=== PATIENT | male | born 1965 | race Caucasian/White ===

== ENCOUNTER 2018-05-23 17:23 | Inpatient (IN) | payer OTHER ==
[~2018-05-23 17:23] MED LIST: chlordiazePOXIDE HCL 25 MG CAPSULE PO SCH
[2018-05-23 19:41] VITALS: BMI 18.6
[2018-05-23] MEDS ORDERED: MELATONIN 5 MG TABLETS PO PRN (22:00)
--- NOTE | 2018-05-23 23:23 | HP ---
CIWA Score - CIWA Score Nausea/Vomitin-No Nausea/No Vomiting Muscle Tremors: 3 Anxiety: 3 Agitation: 3 Paroxysmal Sweats: 3 Orientation: 0-Oriented Tacttile Disturbances: 2-Mild Itch/Numbness/Burn (hands and feet) Auditory Disturbances: 0-None Visual Disturbances: 2-Mild Sensitivity Headache: 2-Mild CIWA-Ar Total Score: 18 Admission ROS S - HPI Chief Complaint: " I want to do things right, I want to go to rehab after this" alcohol withdrawal symptoms Allergies/Adverse Reactions: Allergies Allergy/AdvReac Type Severity Reaction Status Date / Time No Known Allergies Allergy Verified 05/23/18 22:42 History of Present Illness: 52 yo male with hx of nicotine, crack /cocaine, and alcohol dependence is here seeking detox for the first times. Patient reports he was sent by his contact officer Phylicia Steve to attend detox Denies any prior treatment. PMHX: Asthma, TBI, seizure d/o last seizure three days ago, HDL, depression, anxiety and bipolar. Denies suicidal / homicidal ideation. Reports admission to [facility] of suicide attempt attempt one month ago. Longest period of sobriety 7.5 years while in alf. Exam Limitations: No Limitations - Ebola screening Have you traveled outside of the country in the last 21 days: No Have you had contact with anyone from an Ebola affected area: No Have you been sick,other than usual withdrawal symptoms: No Do you have a fever: No - Review of Systems Constitutional: Loss of Appetite, Changes in sleep, Unintentional Wgt. Loss (20 lbs) EENT: reports: No Symptoms Reported Respiratory: reports: No Symptoms reported Cardiac: reports: No Symptoms Reported GI: reports: Constipated (last BM this AM) : reports: No Symptoms Reported Musculoskeletal: reports: Joint Pain (hx OA b/l hands and kness) Integumentary: reports: No Symptoms Reported Neuro: reports: See HPI Endocrine: reports: No Symptoms Reported Hematology: reports: No Symptoms Reported Psychiatric: reports: Orientated x3, Anxious Other Systems: Reviewed and Negative Patient History - Patient Medical History Hx Anemia: No Hx Asthma: Yes Hx Chronic Obstructive Pulmonary Disease (COPD): No Hx Cancer: No Hx Cardiac Disorders: No Hx Congestive Heart Failure: No Hx Hypertension: No Hx Hypercholesterolemia: Yes Hx Pacemaker: No HX Cerebrovascular Accident: No Hx Seizures: Yes (last seizure three days ago ) Hx Dementia: No Hx Diabetes: No Hx Gastrointestinal Disorders: No Hx Liver Disease: No Hx Genitourinary Disorders: No Hx Sexually Transmitted Disorders: No Hx Renal Disease (ESRD): No Hx Thyroid Disease: No Hx Human Immunodeficiency Virus (HIV): No Hx Hepatitis C: Yes (treated ) Hx Depression: Yes Hx Suicide Attempt: Yes (One month ago ) Hx Bipolar Disorder: Yes Hx Schizophrenia: No - Patient Surgical History Past Surgical History: Yes Hx Neurologic Surgery: No Hx Cataract Extraction: No Hx Cardiac Surgery: No Hx Lung Surgery: No Hx Breast Surgery: No Hx Breast Biopsy: No Hx Abdominal Surgery: No Hx Appendectomy: No Hx Cholecystectomy: No Hx Genitourinary Surgery: No Hx Section: No Hx Orthopedic Surgery: Yes (orthoscopic surgery right knee ) Other Surgical History: head inury removal of device 1994 Anesthesia Reaction: No - PPD History Previous Implant?: Yes Documented Results: Negative w/o proof Implanted On Prior [facility] Admission?: No PPD to be Administered?: Yes - Smoking Cessation Smoking history: Current every day smoker Have you smoked in the past 12 months: Yes Aproximately how many cigarettes per day: 5 Hx Chewing Tobacco Use: No Initiated information on smoking cessation: Yes 'Breaking Loose' booklet given: 05/23/18 - Substance & Tx. History Hx Alcohol Use: Yes Hx Substance Use: Yes Substance Use Type: Alcohol, Cocaine Hx Substance Use Treatment: No - Substances Abused Alcohol Route: Oral Frequency: Daily Amount used: BEER- 1 CASE Age of first use: 12 Date of Last Use: 05/23/18 Crack Route: Smoking Frequency: Daily Amount used: $200 WORTH Age of first use: 17 Date of Last Use: 05/22/18 Family Disease History - Family Disease History Family Disease History: Diabetes: Father ( ), CA: Mother (alive, bone CA ) Admission Physical Exam BHS - Vital Signs Vital Signs: Vital Signs - 24 hr 05/23/18 19:39 Temperature 97.9 F Pulse Rate 92 H Respiratory 20 Rate Blood Pressure 129/84 - Physical General Appearance: Yes: Appropriately Dressed, Moderate Distress, Sweating, Anxious HEENTM: Yes: Within Normal Limits Respiratory: Yes: Chest Non-Tender, Lungs Clear, Normal Breath Sounds, No Respiratory Distress, No Accessory Muscle Use Neck: Yes: Within Normal Limits Breast: Yes: Breast Exam Deferred Cardiology: Yes: Regular Rhythm, Regular Rate Abdominal: Yes: Normal Bowel Sounds, Non Tender, Flat, Soft Genitourinary: Yes: Within Normal Limits Back: Yes: Normal Inspection Musculoskeletal: Yes: full range of Motion, Gait Steady, Pelvis Stable Extremities: Yes: Normal Capillary Refill, Normal Inspection, Normal Range of Motion Neurological: Yes: butcher helper II-XII NML intact, Fully Oriented, Alert, Motor Strength 5/5, Depressed Affect Integumentary: Yes: Normal Color, Warm, Diaphoresis Lymphatic: Yes: Within Normal Limits - Diagnostic (1) Withdrawal symptoms, alcohol Current Visit: Yes Status: Acute Qualifiers: Complication of substance-induced condition: uncomplicated Qualified Code(s ): F10.230 - Alcohol dependence with withdrawal, uncomplicated (2) Asthma Current Visit: Yes Status: Chronic Qualifiers: Asthma severity: mild Asthma persistence: unspecified Asthma complication type: unspecified Qualified Code(s): J45.998 - Other asthma (3) Seizure disorder Current Visit: Yes Status: Chronic Comment: on Depakote (4) History of traumatic brain injury Current Visit: Yes Status: Chronic (5) Psychiatric disorder Current Visit: Yes Status: Suspected Cleared for Admission [facility] - Detox or Rehab [facility] Level of Care: Medically Managed Detox Regimen/Protocol: Librium [facility] Breath Alcohol Content Breath Alcohol Content: 0 Urine Drug Screen - Results Drug Screen Negative: No Urine Drug Screen Results: RALPH-Cocaine
[2018-05-23] MEDS ORDERED: MAGNESIUM CITRATE 300 ML BOTTLE PO PRN (23:28)
[2018-05-23] MEDS ORDERED: chlordiazePOXIDE HCL 25 MG CAPSULE PO PRN (23:28)
[2018-05-23] MEDS ORDERED: MAGNESIUM HYDROX 2400MG/30ML ORAL SUSPENSION 30 ML CUP PO PRN (23:28)
[2018-05-23] MEDS ORDERED: ACETAMINOPHEN 325 MG TABLET (FP) PO PRN (23:28)
[2018-05-23] MEDS ORDERED: P-EPHED 60MG/TRIPROLIDI 2.5MG TABLET PO PRN (23:28)
[2018-05-23] MEDS ORDERED: LOPERAMIDE HCL 2 MG CAPSULE PO PRN (23:28)
[2018-05-23] MEDS ORDERED: IBUPROFEN 400 MG TABLET (FP) PO PRN (23:28)
[2018-05-23] MEDS ORDERED: MENTHOL/PHENOL 1 EACH UD MM PRN (23:28)
[2018-05-23] MEDS ORDERED: guaiFENesin/D-METHORPHAN HB 10 ML UNIT-DOSE CUPS PO PRN (23:28)
[2018-05-23] MEDS ORDERED: chlordiazePOXIDE HCL 25 MG CAPSULE PO ONE (23:28)
[2018-05-23] MEDS ORDERED: NICOTINE POLACRILEX 2 MG GUM BC PRN (23:28)
[2018-05-24] MEDS: chlordiazePOXIDE HCL 25 MG CAPSULE PO SCH ×4 (05:33→22:25)
--- NOTE | 2018-05-24 09:13 | CONSULT ---
[facility] Psychiatric Consult - Data Date of interview: 05/24/18 Admission source: [facility] Identifying data: This is a 52 years old male, divorsed, unemployed, living with roommate, on Welfare support, with history of psychiatric hospitalizations , history of Bipolar Disorder, with history of nicotine, crack /cocaine, and alcohol dependence is here seeking detox reporting withdrawal symptoms.Denies any prior Detox treatment. Substance Abuse History: - Smoking Cessation. Smoking history: Current every day smoker. Have you smoked in the past 12 months: Yes. Aproximately how many cigarettes per day: 5. Hx Chewing Tobacco Use: No. Initiated information on smoking cessation: Yes. 'Breaking Loose' booklet given: 05/23/18. - Substance & Tx. History. Hx Alcohol Use: Yes. Hx Substance Use: Yes. Substance Use Type : Alcohol, Cocaine. Hx Substance Use Treatment: No. - Substances Abused. Alcohol. Route: Oral. Frequency: Daily. Amount used: BEER- 1 CASE. Age of first use: 12. Date of Last Use: 05/23/18. Crack. Route: Smoking. Frequency: Daily. Amount used: $200 WORTH. Age of first use: 17. Date of Last Use: 05/22/18 Medical History: TBI history, Seizure history Psychiatric History: Patient reports history of Bipolar Disorder with most recent psychiatric admission on [address] [facility] after suicidal attempt-" I dont like to talk about it, I have been under Alcohol intoxication" . Reports taking prior to admission: Depakote 500mg po bid. Prozac 20mg poqd. Abilify 15mg poqd. Buspar 15mg po qhs. Patient motivated to restart his medications. Denies suicidal and homicidal ideations at this time. Physical/Sexual Abuse/Trauma History: Denies Additional Comment: Depakote 500mg po bid. Prozac 20mg poqd. Abilify 15mg poqd. Buspar 15mg po qhs Mental Status Exam - Mental Status Exam Alert and Oriented to: Place, Person Cognitive Function: Fair Patient Appearance: Unkempt Mood: Sad Affect: Flat Patient Behavior: Cooperative Speech Pattern: Appropriate Voice Loudness: Mildly Soft/Quiet Thought Process: Goal Oriented Thought Disorder: Being Controlled Hallucinations: Denies Suicidal Ideation: Denies Homicidal Ideation: Denies Insight/Judgement: Fair Sleep: Difficulty falling asleep Appetite: Fair Muscle strength/Tone: Normal Gait/Station: Normal Additional Comments: Depakote 500mg po bid. Prozac 20mg poqd. Abilify 15mg poqd. Buspar 15mg po qhs Psychiatric Findings - Problem List ([place] 1, 2,3) (1) Cocaine dependence Current Visit: Yes Status: Acute (2) Alcohol dependence Current Visit: Yes Status: Acute (3) Bipolar disorder Current Visit: Yes Status: Acute (4) Withdrawal symptoms, alcohol Current Visit: Yes Status: Acute Qualifiers: Complication of substance-induced condition: uncomplicated Qualified Code(s ): F10.230 - Alcohol dependence with withdrawal, uncomplicated (5) Asthma Current Visit: Yes Status: Chronic Qualifiers: Asthma severity: mild Asthma persistence: unspecified Asthma complication type: unspecified Qualified Code(s): J45.998 - Other asthma (6) History of traumatic brain injury Current Visit: Yes Status: Chronic (7) Seizure disorder Current Visit: Yes Status: Chronic Comment: on Depakote - Initial Treatment Plan Initial Treatment Plan: Depakote 500mg po bid. Prozac 20mg poqd. Abilify 15mg poqd. Buspar 15mg po qhs. Blood Depakote level
[2018-05-24 10:24] LABS: HEMATOCRIT 40.5 % (35.4-49); HEMOGLOBIN 13.3 GM/dL (11.7-16.9); MCH 30.9 pg (25.7-33.7); MCHC 32.8 g/dl (32.0-35.9); MEAN CELL VOLUME 94.1 fl (80-96); MEAN PLT VOLUME 9.8 fl (7.5-11.1); PLATELET COUNT 187 K/MM3 (134-434); RBC 4.31 M/mm3 (4.00-5.60); WHITE BLOOD COUNT 6.1 K/mm3 (4.0-10.0)
[2018-05-24] MEDS: ARIPiprazole 15 MG TABLET PO SCH (10:36)
[2018-05-24] MEDS: PRENATAL VITAMINS W/ FOLIC ACID TABLET (FP) PO SCH (10:36)
[2018-05-24] MEDS: DIVALPROEX SODIUM 500 MG TABLET E.C. PO SCH ×2 (10:36→22:25)
[2018-05-24] MEDS: NICOTINE 14 MG/24 HOURS TOPICAL PATCH TD SCH (10:36)
[2018-05-24] MEDS: FLUoxetine HCL 20 MG CAPSULE (FP) PO SCH (10:36)
--- NOTE | 2018-05-24 10:44 | PN ---
S CIWA - CIWA Score Nausea/Vomitin Muscle Tremors: 3 Anxiety: 2 Agitation: 2 Paroxysmal Sweats: 3 Tacttile Disturbances: 2-Mild Itch/Numbness/Burn Auditory Disturbances: 0-None Visual Disturbances: 0-None Headache: 0-None Present S Progress Note (SOAP) Subjective: interrupted sleep, sweats,shakes , wants to see kimberly for medication adjustment. Objective: 05/24/18 10:42 Vital Signs Temperature 97.7 F 05/24/18 06:09 Pulse Rate 85 05/24/18 06:09 Respiratory Rate 20 05/24/18 06:09 Blood Pressure 118/64 05/24/18 06:09 O2 Sat by Pulse Oximetry (%) pending labs pt aox3 in nad ambulating Assessment: 05/24/18 10:43 withdrawal sx's Plan: cont detox increase fluids f/up pending labs pysch f/up
[2018-05-24 10:45] LABS: CHLORIDE 108 mmol/L (98-107); POTASSIUM 4.4 mmol/L (3.5-5.1); SODIUM 143 mmol/L (136-145)
[2018-05-24 10:55] LABS: ALBUMIN 2.9 g/dl (3.4-5.0); ALK PHOS 57 U/L (45-117); ANION GAP 5 MMOL/L (8-16); BILIRUBIN,TOTAL 0.2 mg/dL (0.2-1.0); BLOOD UREA NITROGEN 24 mg/dL (7-18); CALCIUM 8.7 mg/dL (8.5-10.1); CO2 30 mmol/L (21-32); GLUCOSE,RANDOM 92 mg/dL (74-106); SGOT/AST 13 U/L (15-37); SGPT/ALT 22 U/L (12-78); TOT PROT 5.7 g/dl (6.4-8.2)
[2018-05-24 11:00] LABS: URINE APPEARANCE CLEAR; URINE BILIRUBIN NEGATIVE (<2.0 mg/dL); URINE COLOR LTYELLOW; URINE GLUCOSE (UA) NEGATIVE (NEGATIVE); URINE KETONE NEGATIVE (NEGATIVE); URINE LEUK ESTERASE NEGATIVE (NEGATIVE); URINE NITRITE NEGATIVE (NEGATIVE); URINE PROTEIN NEGATIVE (NEGATIVE); URINE UROBILINOGEN NEGATIVE mg/dL (0.2-1.0)
[2018-05-24] MEDS: MAG HYDROX/AL HYDROX/SIMETH 30 ML UNIT-DOSE CUP PO PRN (22:25)
[2018-05-24] MEDS: THIAMINE HCL 100 MG TABLET (FP) PO SCH (22:25)
[2018-05-25] MEDS: chlordiazePOXIDE 5 MG CAPSULE PO SCH ×4 (05:18→22:27)
[2018-05-25] MEDS: NICOTINE 14 MG/24 HOURS TOPICAL PATCH TD SCH (10:13)
[2018-05-25] MEDS: FLUoxetine HCL 20 MG CAPSULE (FP) PO SCH (10:13)
[2018-05-25] MEDS: ARIPiprazole 15 MG TABLET PO SCH (10:13)
[2018-05-25] MEDS: DIVALPROEX SODIUM 500 MG TABLET E.C. PO SCH ×2 (10:13→22:27)
[2018-05-25] MEDS: PRENATAL VITAMINS W/ FOLIC ACID TABLET (FP) PO SCH (10:13)
--- NOTE | 2018-05-25 18:09 | PN ---
S CIWA - CIWA Score Nausea/Vomitin-No Nausea/No Vomiting Muscle Tremors: 4-Moderate,w/Arms Extend Anxiety: 1-Mildly Anxious Agitation: 0-Normal Activity Paroxysmal Sweats: No Perspiration Orientation: 0-Oriented Tacttile Disturbances: 0-None Auditory Disturbances: 0-None Visual Disturbances: 0-None Headache: 0-None Present CIWA-Ar Total Score: 5 BHS Progress Note (SOAP) Subjective: Patient states feeling a little shaky, but much better. Objective: Alert and oriented x 3. Mild tremors of extremities. Abd soft, NT, BS+. Vital Signs 05/25/18 05/25/18 13:26 17:19 Temperature 97.7 F 97.9 F Pulse Rate 86 82 Respiratory 18 22 Rate Blood Pressure 110/58 107/57 Laboratory Last Values WBC 6.1 K/mm3 (4.0-10.0) 05/24/18 07:30 RBC 4.31 M/mm3 (4.00-5.60) 05/24/18 07:30 Hgb 13.3 GM/dL (11.7-16.9) 05/24/18 07:30 Hct 40.5 % (35.4-49) 05/24/18 07:30 MCV 94.1 fl (80-96) 05/24/18 07:30 MCH 30.9 pg (25.7-33.7) 05/24/18 07:30 MCHC 32.8 g/dl (32.0-35.9) 05/24/18 07:30 RDW 14.0 % (11.9-15.9) 05/24/18 07:30 Plt Count 187 K/MM3 (134-434) 05/24/18 07:30 MPV 9.8 fl (7.5-11.1) 05/24/18 07:30 Sodium 143 mmol/L (136-145) 05/24/18 07:30 Potassium 4.4 mmol/L (3.5-5.1) 05/24/18 07:30 Chloride 108 mmol/L (98-107) H 05/24/18 07:30 Carbon Dioxide 30 mmol/L (21-32) 05/24/18 07:30 Anion Gap 5 MMOL/L (8-16) L 05/24/18 07:30 BUN 24 mg/dL (7-18) H 05/24/18 07:30 Creatinine 1.0 mg/dL (0.7-1.3) 05/24/18 07:30 Creat Clearance w eGFR > 60 (>60) 05/24/18 07:30 Random Glucose 92 mg/dL (74-106) 05/24/18 07:30 Calcium 8.7 mg/dL (8.5-10.1) 05/24/18 07:30 Total Bilirubin 0.2 mg/dL (0.2-1.0) 05/24/18 07:30 AST 13 U/L (15-37) L 05/24/18 07:30 ALT 22 U/L (12-78) 05/24/18 07:30 Alkaline Phosphatase 57 U/L (45-117) 05/24/18 07:30 Total Protein 5.7 g/dl (6.4-8.2) L 05/24/18 07:30 Albumin 2.9 g/dl (3.4-5.0) L 05/24/18 07:30 Urine Color Ltyellow 05/24/18 09:05 Urine Appearance Clear 05/24/18 09:05 Urine pH 6.0 (5.0-8.0) 05/24/18 09:05 Ur Specific [place] 1.026 (1.001-1.035) 05/24/18 09:05 Urine Protein Negative (NEGATIVE) 05/24/18 09:05 Urine Glucose (UA) Negative (NEGATIVE) 05/24/18 09:05 Urine Ketones Negative (NEGATIVE) 05/24/18 09:05 Urine Blood Negative (NEGATIVE) 05/24/18 09:05 Urine Nitrite Negative (NEGATIVE) 05/24/18 09:05 Urine Bilirubin Negative (<2.0 mg/dL) 05/24/18 09:05 Urine Urobilinogen Negative mg/dL (0.2-1.0) 05/24/18 09:05 Ur Leukocyte Esterase Negative (NEGATIVE) 05/24/18 09:05 Valproic Acid 35.6 ug/ml (50-100) L 05/24/18 07:30 RPR Titer Nonreactive (NONREACTIVE) 05/24/18 07:30 HIV 1&2 Antibody Screen Negative 05/24/18 07:30 HIV P24 Antigen Negative 05/24/18 07:30 Labs reviewed. Assessment: Alcohol withdrawal symptoms. Plan: Continue detox. Encourage water intake.
[2018-05-25] MEDS: THIAMINE HCL 100 MG TABLET (FP) PO SCH (22:27)
[2018-05-25] MEDS: MAG HYDROX/AL HYDROX/SIMETH 30 ML UNIT-DOSE CUP PO PRN (22:28)
[2018-05-26] MEDS: chlordiazePOXIDE HCL 10 MG CAPSULE PO SCH ×3 (05:55→17:23)
[2018-05-26] MEDS: MAG HYDROX/AL HYDROX/SIMETH 30 ML UNIT-DOSE CUP PO PRN (05:56)
[2018-05-26] MEDS: ARIPiprazole 15 MG TABLET PO SCH (10:27)
[2018-05-26] MEDS: NICOTINE 14 MG/24 HOURS TOPICAL PATCH TD SCH (10:27)
[2018-05-26] MEDS: DIVALPROEX SODIUM 500 MG TABLET E.C. PO SCH (10:27)
[2018-05-26] MEDS: FLUoxetine HCL 20 MG CAPSULE (FP) PO SCH (10:27)
[2018-05-26] MEDS: PRENATAL VITAMINS W/ FOLIC ACID TABLET (FP) PO SCH (10:27)
--- NOTE | 2018-05-26 14:48 | DS ---
[facility] Detox Discharge Summary Admission Date: 05/23/18 Discharge Date: 05/26/18 - History Present History: Alcohol Dependence, Cocaine Dependence Additional Comments: Patient admitted w/ alcohol withdrawal. Laboratory Tests 05/24/18 05/24/18 05/24/18 07:30 07:30 07:30 WBC 6.1 RBC 4.31 Hgb 13.3 Hct 40.5 MCV 94.1 MCH 30.9 MCHC 32.8 RDW 14.0 Plt Count 187 MPV 9.8 Sodium 143 Potassium 4.4 Chloride 108 H Carbon Dioxide 30 Anion Gap 5 L BUN 24 H Creatinine 1.0 Creat Clearance w eGFR > 60 Random Glucose 92 Calcium 8.7 Total Bilirubin 0.2 AST 13 L ALT 22 Alkaline Phosphatase 57 Total Protein 5.7 L Albumin 2.9 L Urine Color Urine Appearance Urine pH Ur Specific [place] Urine Protein Urine Glucose (UA) Urine Ketones Urine Blood Urine Nitrite Urine Bilirubin Urine Urobilinogen Ur Leukocyte Esterase Valproic Acid RPR Titer HIV 1&2 Antibody Screen Negative HIV P24 Antigen Negative 05/24/18 05/24/18 05/24/18 07:30 07:30 09:05 WBC RBC Hgb Hct MCV MCH MCHC RDW Plt Count MPV Sodium Potassium Chloride Carbon Dioxide Anion Gap BUN Creatinine Creat Clearance w eGFR Random Glucose Calcium Total Bilirubin AST ALT Alkaline Phosphatase Total Protein Albumin Urine Color Ltyellow Urine Appearance Clear Urine pH 6.0 Ur Specific [place] 1.026 Urine Protein Negative Urine Glucose (UA) Negative Urine Ketones Negative Urine Blood Negative Urine Nitrite Negative Urine Bilirubin Negative Urine Urobilinogen Negative Ur Leukocyte Esterase Negative Valproic Acid 35.6 L RPR Titer Nonreactive HIV 1&2 Antibody Screen HIV P24 Antigen Labs reviewed. - Physical Exam Results Vital Signs: Vital Signs Temperature 96.6 F L 05/26/18 13:13 Pulse Rate 83 05/26/18 13:13 Respiratory Rate 18 05/26/18 13:13 Blood Pressure 131/73 05/26/18 13:13 O2 Sat by Pulse Oximetry (%) Pertinent Admission Physical Exam Findings: Patient admitted with alcohol withdrawal symptoms and a hx of crack/cocaine use. Patient w/ hx of seizures on Depakote. - Treatment Hospital Course: Detox Protocol Followed, Detoxed Safely, Responded well, Discharged Condition Good (No withdrawal symptoms. A & O x3. Gait steady.), Rehab Referral Accepted Patient has Accepted a Rehab Referral to: [facility] - Medication Discharge Medications: Ambulatory Orders Fluoxetine HCl [Prozac -] 20 mg PO DAILY 05/23/18 Aripiprazole [Abilify -] 15 mg PO DAILY #30 tablet 05/24/18 Buspirone HCl [Buspar -] 15 mg PO HS #30 tablet 05/24/18 Divalproex [Depakote -] 500 mg PO BID #60 tablet.ec 05/24/18 Fluoxetine HCl [Prozac -] 20 mg PO DAILY #30 capsule 05/24/18 - Diagnosis (1) Withdrawal symptoms, alcohol Status: Resolved Qualifiers: Complication of substance-induced condition: uncomplicated Qualified Code(s ): F10.230 - Alcohol dependence with withdrawal, uncomplicated - AMA Did Patient Leave Against Medical Advice: No
[2018-05-26 17:21] VITALS: BP 131/65; PULSE 96; TEMP 97.7
== END 2018-05-26 17:51 | disposition other institution (70) | DRG 774 ==
LOC: YASAS 17:23 → Y6N 23:11
PROC: HZ2ZZZZ Detoxification Services for Substance Abuse Treatment (ICD-10-PCS; principal; 2018-05-23)
DX: F10.230 Alcohol dependence with withdrawal, uncomplicated (principal); F14.20 Cocaine dependence, uncomplicated; F17.210 Nicotine dependence, cigarettes, uncomplicated; F31.9 Bipolar disorder, unspecified; F99 Mental disorder, not otherwise specified; G40.909 Epilepsy, unspecified, not intractable, without status epilepticus; J45.998 Other asthma; M19.042 Primary osteoarthritis, left hand; M19.041 Primary osteoarthritis, right hand; M17.0 Bilateral primary osteoarthritis of knee; Z86.19 Personal history of other infectious and parasitic diseases; Z91.5 Personal history of self-harm; Z87.820 Personal history of traumatic brain injury
CPT/HCPCS: 36415; 80053; 80164; 81003; 85027; 86593; 87389

== ENCOUNTER 2018-05-26 18:16 | Inpatient (IN) | payer OTHER ==
[2018-05-26] MEDS ORDERED: MAGNESIUM HYDROX 2400MG/30ML ORAL SUSPENSION 30 ML CUP PO PRN (20:19)
[2018-05-26] MEDS ORDERED: IBUPROFEN 400 MG TABLET (FP) PO PRN (20:19)
[2018-05-26] MEDS ORDERED: MAGNESIUM CITRATE 300 ML BOTTLE PO PRN (20:19)
[2018-05-26] MEDS ORDERED: guaiFENesin/D-METHORPHAN HB 10 ML UNIT-DOSE CUPS PO PRN (20:19)
[2018-05-26] MEDS ORDERED: hydrOXYzine PAMOATE 50 MG CAPSULE (FP) PO PRN (20:19)
[2018-05-26] MEDS ORDERED: MENTHOL/PHENOL 1 EACH UD MM PRN (20:19)
[2018-05-26] MEDS ORDERED: P-EPHED 60MG/TRIPROLIDI 2.5MG TABLET PO PRN (20:19)
[2018-05-26] MEDS ORDERED: LOPERAMIDE HCL 2 MG CAPSULE PO PRN (20:19)
[2018-05-26] MEDS ORDERED: ACETAMINOPHEN 325 MG TABLET (FP) PO PRN (20:19)
[2018-05-26] MEDS: THIAMINE HCL 100 MG TABLET (FP) PO SCH (21:56)
[2018-05-26] MEDS: MELATONIN 5 MG TABLETS PO PRN (21:56)
[2018-05-26] MEDS: MAG HYDROX/AL HYDROX/SIMETH 30 ML UNIT-DOSE CUP PO PRN (21:56)
--- NOTE | 2018-05-26 22:10 | PN ---
[facility] Progress Note Note: Patient seen and states has no withdrawal symptoms and wants to go to rehab. A & O x3. Gait steady. Vital Signs 05/26/18 20:39 Temperature 97.7 F Pulse Rate 80 Respiratory 18 Rate Blood Pressure 131/65
[2018-05-27] MEDS: DIVALPROEX SODIUM 500 MG TABLET E.C. PO SCH ×2 (09:43→21:13)
[2018-05-27] MEDS: PRENATAL VITAMINS W/ FOLIC ACID TABLET (FP) PO SCH (09:43)
[2018-05-27] MEDS: NICOTINE 14 MG/24 HOURS TOPICAL PATCH TD SCH (09:43)
--- NOTE | 2018-05-27 13:25 | PN ---
[facility] Progress Note Note: Psychiatry Attending's note : Called to enter orders for medications. New admission to . Mr Luis completed detoxification. On .Diagnosed with Bipolar Disorder. Dr Barnard's note (05/24/18) : appreciated. Medications confirmed.Labs are revisited.CBC : WNL. Valproic acid level = 35.6 (sub-therapeutic). Medications are well tolerated.Unremarkable LFTS. Side effects/benefits discussed with the patient. Consents (verbally) to continuity of care. Plan : Depakote 500 mg po bid Buspar 15 mg po hs Aripriprazole 15 mg po daily Prozac 20 mg po daily Reconciled.
[2018-05-27] MEDS: THIAMINE HCL 100 MG TABLET (FP) PO SCH (21:14)
[2018-05-27] MEDS: MELATONIN 5 MG TABLETS PO PRN (21:15)
[2018-05-28] MEDS: FLUoxetine HCL 20 MG CAPSULE (FP) PO SCH (09:39)
[2018-05-28] MEDS: DIVALPROEX SODIUM 500 MG TABLET E.C. PO SCH ×2 (09:39→21:23)
[2018-05-28] MEDS: PRENATAL VITAMINS W/ FOLIC ACID TABLET (FP) PO SCH (09:39)
[2018-05-28] MEDS: ARIPiprazole 15 MG TABLET PO SCH (09:39)
[2018-05-28] MEDS: NICOTINE 14 MG/24 HOURS TOPICAL PATCH TD SCH (09:39)
[2018-05-28] MEDS: MELATONIN 5 MG TABLETS PO PRN (21:24)
[2018-05-28] MEDS: THIAMINE HCL 100 MG TABLET (FP) PO SCH (21:24)
--- NOTE | 2018-05-29 08:05 | HP ---
Psychiatrist Admission - Data Date of interview: 05/29/18 Admission source: 6N Identifying data: This is the first [facility] admission for this 52 years old [place]haric[place]Faro[place] male, unemployed on public assistance, domiciled living in [facility] housing Medical History: Significant for bronchial asthma, dyslipidemia, history of TBI , arthritis fingers ans knees and arthroscopic surgery right knee. Smokes 5 cigarettes daily Psychiatric History: Reports that his first psychiatric contact was in 1993 when he was admitted to a hospital in [place], [place], diagnosed with Bipolar Disorder and started on psychotropic medications. Reports multiple subsequent admissions to hospitals in [place], [facility] and [place]. Most recent admission was a month ago to [facility] for suicidal ideations. He was discharged on Depakote 500 mg po BID, Prozac 60 mg po daily, Buspar 15 mg po HS and Abilify 15 mg po daily. Denies previous suicidal attempt. At present, reports feeling anxious and sleeping poorly Physical/Sexual Abuse/Trauma History: Denies history of emotional, physical or sexual abuse as well as DV relationship. Claims he was in [facility] [employer] for 3 years and his discharge was honorable Additional Comment: Reports history of 4-5 previous arrests including 3 felony convictions. Reports being on parole till December 29, 2018 Vital Signs: Vital Signs - 24 hr 05/29/18 05/29/18 05/29/18 00:30 03:30 06:56 Temperature 97.6 F Pulse Rate 83 Respiratory 20 20 18 Rate Blood Pressure 115/73 Allergies/Adverse Reactions: Allergies Allergy/AdvReac Type Severity Reaction Status Date / Time No Known Allergies Allergy Verified 05/23/18 22:42 Date of last physical exam: 05/23/18 Concur with the findings of this exam: Yes - Substance Abuse/Tx History Hx Alcohol Use: Yes Hx Substance Use: Yes Substance Use Type: Alcohol (Started drinking alcohol at age 12, consumes one can of beer daily. Last drank on 05/23/18), Cocaine (Started smoking crack cocaine at age 17, consumes $200 worth daily. Last smoked on 05/22/18) Hx Substance Use Treatment: Yes (3 inpt detox and one inpt rehab([place], [place])) Mental Status Exam - Mental Status Exam Alert and Oriented to: Time, Place, Person Cognitive Function: Fair Patient Appearance: Well Groomed Mood: Anxious Affect: Appropriate Patient Behavior: Cooperative Speech Pattern: Clear Voice Loudness: Normal Thought Process: Intact, Goal Oriented Thought Disorder: Not Present Hallucinations: Denies Suicidal Ideation: Denies Homicidal Ideation: Denies Insight/Judgement: Fair Sleep: Poorly Appetite: Good Muscle strength/Tone: Normal Gait/Station: Normal Psychiatric Findings - Problem List ([place] 1, 2,3) (1) Alcohol dependence Current Visit: No Status: Acute (2) Cocaine dependence Current Visit: No Status: Acute Qualifiers: Substance use status: in remission Qualified Code(s): F14.21 - Cocaine dependence, in remission (3) Nicotine dependence Current Visit: Yes Status: Chronic (4) Bipolar disorder Current Visit: No Status: Chronic Qualifiers: Most recent bipolar episode type: most recent episode unspecified type (5) Substance induced mood disorder Current Visit: Yes Status: Acute (6) Substance-induced sleep disorder Current Visit: Yes Status: Acute (7) Asthma Current Visit: No Status: Chronic Qualifiers: Asthma severity: mild Asthma persistence: unspecified Asthma complication type: unspecified Qualified Code(s): J45.998 - Other asthma (8) History of traumatic brain injury Current Visit: No Status: Chronic (9) Seizure disorder Current Visit: No Status: Chronic Comment: on Depakote (10) HLD (hyperlipidemia) Current Visit: Yes Status: Chronic - Initial Treatment Plan Initial Treatment Plan: 1) Continue Prozac 60 mg po daily, Abilify 15 mg po daily, Buspar 15 mg po HS and Depakote 500 mg po BID. 2) Monitor progress
[2018-05-29] MEDS: ARIPiprazole 15 MG TABLET PO SCH (10:10)
[2018-05-29] MEDS: DIVALPROEX SODIUM 500 MG TABLET E.C. PO SCH ×2 (10:10→21:36)
[2018-05-29] MEDS: PRENATAL VITAMINS W/ FOLIC ACID TABLET (FP) PO SCH (10:10)
[2018-05-29] MEDS: NICOTINE 14 MG/24 HOURS TOPICAL PATCH TD SCH (10:10)
[2018-05-29] MEDS: FLUoxetine HCL 20 MG CAPSULE (FP) PO SCH (10:11)
[2018-05-29] MEDS: THIAMINE HCL 100 MG TABLET (FP) PO SCH (21:36)
[2018-05-29] MEDS: MELATONIN 5 MG TABLETS PO PRN (21:36)
[2018-05-30] MEDS: NICOTINE 14 MG/24 HOURS TOPICAL PATCH TD SCH (10:09)
[2018-05-30] MEDS: PRENATAL VITAMINS W/ FOLIC ACID TABLET (FP) PO SCH (10:09)
[2018-05-30] MEDS: FLUoxetine HCL 20 MG CAPSULE (FP) PO SCH (10:10)
[2018-05-30] MEDS: DIVALPROEX SODIUM 500 MG TABLET E.C. PO SCH ×2 (10:10→21:45)
[2018-05-30] MEDS: ARIPiprazole 15 MG TABLET PO SCH (10:10)
[2018-05-30] MEDS: THIAMINE HCL 100 MG TABLET (FP) PO SCH (21:45)
[2018-05-30] MEDS: MELATONIN 5 MG TABLETS PO PRN (21:45)
[2018-05-31] MEDS: FLUoxetine HCL 20 MG CAPSULE (FP) PO SCH (10:00)
[2018-05-31] MEDS: PRENATAL VITAMINS W/ FOLIC ACID TABLET (FP) PO SCH (10:00)
[2018-05-31] MEDS: ARIPiprazole 15 MG TABLET PO SCH (10:00)
[2018-05-31] MEDS: NICOTINE 14 MG/24 HOURS TOPICAL PATCH TD SCH (10:00)
[2018-05-31] MEDS: DIVALPROEX SODIUM 500 MG TABLET E.C. PO SCH ×2 (10:00→22:06)
[2018-05-31] MEDS: THIAMINE HCL 100 MG TABLET (FP) PO SCH (22:06)
[2018-05-31] MEDS: MELATONIN 5 MG TABLETS PO PRN (22:06)
[2018-05-31] MEDS: MAG HYDROX/AL HYDROX/SIMETH 30 ML UNIT-DOSE CUP PO PRN (22:08)
[2018-06-01] MEDS: PRENATAL VITAMINS W/ FOLIC ACID TABLET (FP) PO SCH (10:00)
[2018-06-01] MEDS: NICOTINE POLACRILEX 2 MG GUM BUC PRN (10:01)
[2018-06-01] MEDS: DIVALPROEX SODIUM 500 MG TABLET E.C. PO SCH ×2 (10:01→21:20)
[2018-06-01] MEDS: FLUoxetine HCL 20 MG CAPSULE (FP) PO SCH (10:01)
[2018-06-01] MEDS: ARIPiprazole 15 MG TABLET PO SCH (10:01)
[2018-06-01] MEDS: NICOTINE 14 MG/24 HOURS TOPICAL PATCH TD SCH (10:01)
--- NOTE | 2018-06-01 14:48 | PN ---
S Progress Note Note: Vital Signs Temperature 97.6 F 06/01/18 07:04 Pulse Rate 87 06/01/18 07:04 Respiratory Rate 20 06/01/18 07:04 Blood Pressure 114/86 06/01/18 07:04 O2 Sat by Pulse Oximetry (%) Patient with chronic OA both hands and knees c/o of chronic pain AOx3 no distress no adventitious breath sounds +knee pain and pain in joints of hands, full ROM no joint erythema skin intact AO Plan: Naproxen 500mg BID ambulate follow up with primary care provider upon discharge continue to monitor
[2018-06-01] MEDS: THIAMINE HCL 100 MG TABLET (FP) PO SCH (21:20)
[2018-06-01] MEDS: NAPROXEN 500 MG TABLET (FP) PO SCH (21:20)
[2018-06-01] MEDS: MELATONIN 5 MG TABLETS PO PRN (21:20)
[2018-06-02] MEDS: NAPROXEN 500 MG TABLET (FP) PO SCH ×2 (10:00→21:21)
[2018-06-02] MEDS: NICOTINE 14 MG/24 HOURS TOPICAL PATCH TD SCH (10:00)
[2018-06-02] MEDS: DIVALPROEX SODIUM 500 MG TABLET E.C. PO SCH ×2 (10:00→21:21)
[2018-06-02] MEDS: FLUoxetine HCL 20 MG CAPSULE (FP) PO SCH (10:00)
[2018-06-02] MEDS: ARIPiprazole 15 MG TABLET PO SCH (10:00)
[2018-06-02] MEDS: PRENATAL VITAMINS W/ FOLIC ACID TABLET (FP) PO SCH (10:00)
[2018-06-02] MEDS: NICOTINE POLACRILEX 2 MG GUM BUC PRN (10:02)
[2018-06-02] MEDS: MELATONIN 5 MG TABLETS PO PRN (21:20)
[2018-06-02] MEDS: THIAMINE HCL 100 MG TABLET (FP) PO SCH (21:20)
[2018-06-03] MEDS: DIVALPROEX SODIUM 500 MG TABLET E.C. PO SCH ×2 (10:00→21:22)
[2018-06-03] MEDS: PRENATAL VITAMINS W/ FOLIC ACID TABLET (FP) PO SCH (10:00)
[2018-06-03] MEDS: NICOTINE 14 MG/24 HOURS TOPICAL PATCH TD SCH (10:01)
[2018-06-03] MEDS: FLUoxetine HCL 20 MG CAPSULE (FP) PO SCH (10:01)
[2018-06-03] MEDS: NAPROXEN 500 MG TABLET (FP) PO SCH ×2 (10:01→21:22)
[2018-06-03] MEDS: NICOTINE POLACRILEX 2 MG GUM BUC PRN (10:03)
[2018-06-03] MEDS: THIAMINE HCL 100 MG TABLET (FP) PO SCH (21:22)
[2018-06-03] MEDS: ARIPiprazole 15 MG TABLET PO SCH (21:23)
[2018-06-04] MEDS: NAPROXEN 500 MG TABLET (FP) PO SCH ×2 (09:42→21:30)
[2018-06-04] MEDS: PRENATAL VITAMINS W/ FOLIC ACID TABLET (FP) PO SCH (09:42)
[2018-06-04] MEDS: DIVALPROEX SODIUM 500 MG TABLET E.C. PO SCH ×2 (09:42→21:30)
[2018-06-04] MEDS: NICOTINE 14 MG/24 HOURS TOPICAL PATCH TD SCH (09:42)
[2018-06-04] MEDS: FLUoxetine HCL 20 MG CAPSULE (FP) PO SCH (09:42)
[2018-06-04] MEDS: ARIPiprazole 15 MG TABLET PO SCH (21:30)
[2018-06-04] MEDS: MELATONIN 5 MG TABLETS PO PRN (21:30)
[2018-06-04] MEDS: THIAMINE HCL 100 MG TABLET (FP) PO SCH (21:30)
[2018-06-05] MEDS: PRENATAL VITAMINS W/ FOLIC ACID TABLET (FP) PO SCH (09:43)
[2018-06-05] MEDS: NICOTINE 14 MG/24 HOURS TOPICAL PATCH TD SCH (09:43)
[2018-06-05] MEDS: NAPROXEN 500 MG TABLET (FP) PO SCH ×2 (09:43→22:00)
[2018-06-05] MEDS: FLUoxetine HCL 20 MG CAPSULE (FP) PO SCH (09:43)
[2018-06-05] MEDS: DIVALPROEX SODIUM 500 MG TABLET E.C. PO SCH ×2 (09:43→22:00)
[2018-06-05] MEDS: THIAMINE HCL 100 MG TABLET (FP) PO SCH (22:00)
[2018-06-05] MEDS: ARIPiprazole 15 MG TABLET PO SCH (22:00)
[2018-06-05] MEDS: MELATONIN 5 MG TABLETS PO PRN (22:00)
[2018-06-06] MEDS: DIVALPROEX SODIUM 500 MG TABLET E.C. PO SCH ×2 (10:05→21:34)
[2018-06-06] MEDS: FLUoxetine HCL 20 MG CAPSULE (FP) PO SCH (10:05)
[2018-06-06] MEDS: PRENATAL VITAMINS W/ FOLIC ACID TABLET (FP) PO SCH (10:05)
[2018-06-06] MEDS: NICOTINE 14 MG/24 HOURS TOPICAL PATCH TD SCH (10:05)
[2018-06-06] MEDS: NAPROXEN 500 MG TABLET (FP) PO SCH ×2 (10:05→21:34)
[2018-06-06] MEDS: ARIPiprazole 15 MG TABLET PO SCH (21:34)
[2018-06-06] MEDS: MELATONIN 5 MG TABLETS PO PRN (21:34)
[2018-06-06] MEDS: THIAMINE HCL 100 MG TABLET (FP) PO SCH (21:35)
[2018-06-07] MEDS: NAPROXEN 500 MG TABLET (FP) PO SCH ×2 (09:50→21:37)
[2018-06-07] MEDS: DIVALPROEX SODIUM 500 MG TABLET E.C. PO SCH ×2 (09:50→21:37)
[2018-06-07] MEDS: NICOTINE 14 MG/24 HOURS TOPICAL PATCH TD SCH (09:50)
[2018-06-07] MEDS: FLUoxetine HCL 20 MG CAPSULE (FP) PO SCH (09:50)
[2018-06-07] MEDS: PRENATAL VITAMINS W/ FOLIC ACID TABLET (FP) PO SCH (09:50)
[2018-06-07] MEDS: ARIPiprazole 15 MG TABLET PO SCH (21:37)
[2018-06-07] MEDS: THIAMINE HCL 100 MG TABLET (FP) PO SCH (21:37)
[2018-06-07] MEDS: MELATONIN 5 MG TABLETS PO PRN (21:37)
[2018-06-08] MEDS: NICOTINE 14 MG/24 HOURS TOPICAL PATCH TD SCH (10:00)
[2018-06-08] MEDS: FLUoxetine HCL 20 MG CAPSULE (FP) PO SCH (10:01)
[2018-06-08] MEDS: DIVALPROEX SODIUM 500 MG TABLET E.C. PO SCH ×2 (10:01→21:32)
[2018-06-08] MEDS: PRENATAL VITAMINS W/ FOLIC ACID TABLET (FP) PO SCH (10:01)
[2018-06-08] MEDS: NAPROXEN 500 MG TABLET (FP) PO SCH ×2 (10:01→21:32)
[2018-06-08] MEDS: MELATONIN 5 MG TABLETS PO PRN (21:32)
[2018-06-08] MEDS: THIAMINE HCL 100 MG TABLET (FP) PO SCH (21:32)
[2018-06-08] MEDS: ARIPiprazole 15 MG TABLET PO SCH (21:32)
[2018-06-09] MEDS: DIVALPROEX SODIUM 500 MG TABLET E.C. PO SCH ×2 (09:54→22:00)
[2018-06-09] MEDS: NAPROXEN 500 MG TABLET (FP) PO SCH ×2 (09:54→21:59)
[2018-06-09] MEDS: FLUoxetine HCL 20 MG CAPSULE (FP) PO SCH (09:54)
[2018-06-09] MEDS: PRENATAL VITAMINS W/ FOLIC ACID TABLET (FP) PO SCH (09:54)
[2018-06-09] MEDS: NICOTINE 14 MG/24 HOURS TOPICAL PATCH TD SCH (09:54)
[2018-06-09] MEDS: THIAMINE HCL 100 MG TABLET (FP) PO SCH (22:00)
[2018-06-09] MEDS: MELATONIN 5 MG TABLETS PO PRN (22:00)
[2018-06-09] MEDS: ARIPiprazole 15 MG TABLET PO SCH (22:00)
[2018-06-10] MEDS: NICOTINE 14 MG/24 HOURS TOPICAL PATCH TD SCH (09:38)
[2018-06-10] MEDS: DIVALPROEX SODIUM 500 MG TABLET E.C. PO SCH ×2 (09:38→21:55)
[2018-06-10] MEDS: FLUoxetine HCL 20 MG CAPSULE (FP) PO SCH (09:39)
[2018-06-10] MEDS: PRENATAL VITAMINS W/ FOLIC ACID TABLET (FP) PO SCH (09:39)
[2018-06-10] MEDS: NAPROXEN 500 MG TABLET (FP) PO SCH ×2 (09:39→21:55)
[2018-06-10] MEDS: MELATONIN 5 MG TABLETS PO PRN (21:55)
[2018-06-10] MEDS: THIAMINE HCL 100 MG TABLET (FP) PO SCH (21:55)
[2018-06-10] MEDS: ARIPiprazole 15 MG TABLET PO SCH (21:55)
[2018-06-11] MEDS: DIVALPROEX SODIUM 500 MG TABLET E.C. PO SCH ×2 (09:40→21:29)
[2018-06-11] MEDS: PRENATAL VITAMINS W/ FOLIC ACID TABLET (FP) PO SCH (09:40)
[2018-06-11] MEDS: NICOTINE 14 MG/24 HOURS TOPICAL PATCH TD SCH (09:40)
[2018-06-11] MEDS: FLUoxetine HCL 20 MG CAPSULE (FP) PO SCH (09:40)
[2018-06-11] MEDS: NAPROXEN 500 MG TABLET (FP) PO SCH ×2 (09:40→21:59)
[2018-06-11] MEDS: ARIPiprazole 15 MG TABLET PO SCH (21:28)
[2018-06-11] MEDS: THIAMINE HCL 100 MG TABLET (FP) PO SCH (21:29)
[2018-06-11] MEDS: MELATONIN 5 MG TABLETS PO PRN (21:29)
[2018-06-12] MEDS: FLUoxetine HCL 20 MG CAPSULE (FP) PO SCH (09:59)
[2018-06-12] MEDS: NAPROXEN 500 MG TABLET (FP) PO SCH ×2 (10:00→21:40)
[2018-06-12] MEDS: NICOTINE 14 MG/24 HOURS TOPICAL PATCH TD SCH (10:00)
[2018-06-12] MEDS: DIVALPROEX SODIUM 500 MG TABLET E.C. PO SCH ×2 (10:00→21:40)
[2018-06-12] MEDS: PRENATAL VITAMINS W/ FOLIC ACID TABLET (FP) PO SCH (10:00)
--- NOTE | 2018-06-12 10:55 | PN ---
S Progress Note Note: PT C/O CHRONIC PAIN TO HANDS-NOT TOTALLY RELIEVED BY CURRENT NAPROSYN DIRECTED. PT ALSO C/O TREMOR TO RIGHT HAND AT REST ON/OFF. PT HAS A HX OF SEIZURES(ON DEPAKOTE) AND RHEUMATOID ARTHRITIS. PT REPORTS HE HAS A PMD DR. ROY AT [place], [place] WHO MANAGES HIS MEDICAL CARE. Vital Signs 06/12/18 06/12/18 03:30 06:57 Temperature 97.4 F L Pulse Rate 78 Respiratory 18 18 Rate Blood Pressure 131/88 EXTREMITIES:BILATERAL BONE DEFORMITY(CONTRACTURES) OF RING AND SMALL FINGERS OF BOTH HANDS. AREAS OF REDNESS ON PROXIMAL INTERPHALANGEAL JOINTS OF INDEX AND MIDDLE FINGERS. OTHER FINGERS NORMAL ACTIVE ROM. PLAN:ADD FLEXERIL 10 MG PO TID PRN CONTINUE WITH NAPROSYN DIRECTED. FOLLOW UP WITH YOUR PMD/NEUROLOGIST AFTER REHAB FOR MEDICAL MANAGEMENT OF COMORBID CONDITIONS.
[2018-06-12] MEDS: ARIPiprazole 15 MG TABLET PO SCH (21:40)
[2018-06-12] MEDS: MELATONIN 5 MG TABLETS PO PRN (21:40)
[2018-06-12] MEDS: CYCLOBENZAPRINE HCL 10 MG TABLET (FP) PO PRN (21:40)
[2018-06-12] MEDS: THIAMINE HCL 100 MG TABLET (FP) PO SCH (21:40)
[2018-06-13] MEDS: DIVALPROEX SODIUM 500 MG TABLET E.C. PO SCH ×2 (09:48→21:45)
[2018-06-13] MEDS: FLUoxetine HCL 20 MG CAPSULE (FP) PO SCH (09:48)
[2018-06-13] MEDS: NAPROXEN 500 MG TABLET (FP) PO SCH ×2 (09:49→21:45)
[2018-06-13] MEDS: CYCLOBENZAPRINE HCL 10 MG TABLET (FP) PO PRN ×2 (09:50→16:59)
[2018-06-13] MEDS: PRENATAL VITAMINS W/ FOLIC ACID TABLET (FP) PO SCH (10:26)
[2018-06-13] MEDS: NICOTINE 14 MG/24 HOURS TOPICAL PATCH TD SCH (10:26)
[2018-06-13] MEDS: MAG HYDROX/AL HYDROX/SIMETH 30 ML UNIT-DOSE CUP PO PRN (11:02)
[2018-06-13] MEDS: MELATONIN 5 MG TABLETS PO PRN (21:44)
[2018-06-13] MEDS: THIAMINE HCL 100 MG TABLET (FP) PO SCH (21:44)
[2018-06-13] MEDS: ARIPiprazole 15 MG TABLET PO SCH (21:44)
[2018-06-14] MEDS: NICOTINE 14 MG/24 HOURS TOPICAL PATCH TD SCH (09:50)
[2018-06-14] MEDS: FLUoxetine HCL 20 MG CAPSULE (FP) PO SCH (09:50)
[2018-06-14] MEDS: NAPROXEN 500 MG TABLET (FP) PO SCH ×2 (09:50→21:30)
[2018-06-14] MEDS: DIVALPROEX SODIUM 500 MG TABLET E.C. PO SCH ×2 (09:50→21:31)
[2018-06-14] MEDS: PRENATAL VITAMINS W/ FOLIC ACID TABLET (FP) PO SCH (09:50)
[2018-06-14] MEDS: CYCLOBENZAPRINE HCL 10 MG TABLET (FP) PO PRN ×3 (09:50→21:32)
[2018-06-14] MEDS: THIAMINE HCL 100 MG TABLET (FP) PO SCH (21:30)
[2018-06-14] MEDS: ARIPiprazole 15 MG TABLET PO SCH (21:30)
[2018-06-15] MEDS: DIVALPROEX SODIUM 500 MG TABLET E.C. PO SCH ×2 (10:05→21:51)
[2018-06-15] MEDS: PRENATAL VITAMINS W/ FOLIC ACID TABLET (FP) PO SCH (10:05)
[2018-06-15] MEDS: NICOTINE 14 MG/24 HOURS TOPICAL PATCH TD SCH (10:05)
[2018-06-15] MEDS: NAPROXEN 500 MG TABLET (FP) PO SCH ×2 (10:05→21:51)
[2018-06-15] MEDS: FLUoxetine HCL 20 MG CAPSULE (FP) PO SCH (10:05)
[2018-06-15] MEDS: CYCLOBENZAPRINE HCL 10 MG TABLET (FP) PO PRN ×2 (10:07→21:51)
[2018-06-15] MEDS ORDERED: FLU VACCINE QUAD 60 MCG/0.5 ML (MDV 18-19) IM ONE (12:00)
[2018-06-15] MEDS: THIAMINE HCL 100 MG TABLET (FP) PO SCH (21:51)
[2018-06-15] MEDS: ARIPiprazole 15 MG TABLET PO SCH (21:51)
[2018-06-15] MEDS: MELATONIN 5 MG TABLETS PO PRN (21:51)
[2018-06-16] MEDS: DIVALPROEX SODIUM 500 MG TABLET E.C. PO SCH ×2 (09:54→22:01)
[2018-06-16] MEDS: PRENATAL VITAMINS W/ FOLIC ACID TABLET (FP) PO SCH (09:54)
[2018-06-16] MEDS: FLUoxetine HCL 20 MG CAPSULE (FP) PO SCH (09:54)
[2018-06-16] MEDS: NICOTINE 14 MG/24 HOURS TOPICAL PATCH TD SCH (09:54)
[2018-06-16] MEDS: NAPROXEN 500 MG TABLET (FP) PO SCH ×2 (09:54→22:01)
[2018-06-16] MEDS: CYCLOBENZAPRINE HCL 10 MG TABLET (FP) PO PRN ×2 (09:55→22:02)
--- NOTE | 2018-06-16 15:58 | HP ---
[facility] Rehab Assess/Revision - Admission History Admitted to Rehab from: [facility] Date of Admission to Rehab: 05/26/18 - Vital signs Vital Signs: Vital Signs Period Temp Pulse Resp BP Sys/Bishop Pulse Ox Last 24 Hr 97.5 F 77 18-18 137/88 - Findings Detox History & Physical reviewed: Yes Concur with findings: Yes Inpatient Rehab Admission - Initial Determination Are CD services needed?: Yes Free of communicable disease: Yes Not in need of hospitalization: Yes - Rehab Admission Criteria Patient is meeting Inpatient Rehab admission criteria:: Yes
[2018-06-16] MEDS: ARIPiprazole 15 MG TABLET PO SCH (22:01)
[2018-06-16] MEDS: THIAMINE HCL 100 MG TABLET (FP) PO SCH (22:01)
[2018-06-16] MEDS: MELATONIN 5 MG TABLETS PO PRN (22:02)
[2018-06-17] MEDS: CYCLOBENZAPRINE HCL 10 MG TABLET (FP) PO PRN ×2 (09:47→21:18)
[2018-06-17] MEDS: NICOTINE 14 MG/24 HOURS TOPICAL PATCH TD SCH (09:47)
[2018-06-17] MEDS: PRENATAL VITAMINS W/ FOLIC ACID TABLET (FP) PO SCH (09:47)
[2018-06-17] MEDS: DIVALPROEX SODIUM 500 MG TABLET E.C. PO SCH ×2 (09:47→21:18)
[2018-06-17] MEDS: NAPROXEN 500 MG TABLET (FP) PO SCH ×2 (09:47→21:18)
[2018-06-17] MEDS: FLUoxetine HCL 20 MG CAPSULE (FP) PO SCH (09:47)
[2018-06-17] MEDS: NICOTINE POLACRILEX 2 MG GUM BUC PRN (09:48)
[2018-06-17] MEDS: ARIPiprazole 15 MG TABLET PO SCH (21:18)
[2018-06-17] MEDS: THIAMINE HCL 100 MG TABLET (FP) PO SCH (21:18)
[2018-06-17] MEDS: MELATONIN 5 MG TABLETS PO PRN (21:18)
[2018-06-18] MEDS: NAPROXEN 500 MG TABLET (FP) PO SCH ×2 (10:05→21:41)
[2018-06-18] MEDS: DIVALPROEX SODIUM 500 MG TABLET E.C. PO SCH ×2 (10:05→21:41)
[2018-06-18] MEDS: FLUoxetine HCL 20 MG CAPSULE (FP) PO SCH (10:05)
[2018-06-18] MEDS: PRENATAL VITAMINS W/ FOLIC ACID TABLET (FP) PO SCH (10:05)
[2018-06-18] MEDS: NICOTINE 14 MG/24 HOURS TOPICAL PATCH TD SCH (10:05)
[2018-06-18] MEDS: CYCLOBENZAPRINE HCL 10 MG TABLET (FP) PO PRN ×2 (10:06→21:41)
[2018-06-18] MEDS: THIAMINE HCL 100 MG TABLET (FP) PO SCH (21:41)
[2018-06-18] MEDS: ARIPiprazole 15 MG TABLET PO SCH (21:41)
[2018-06-18] MEDS: MELATONIN 5 MG TABLETS PO PRN (21:41)
[2018-06-19] MEDS: FLUoxetine HCL 20 MG CAPSULE (FP) PO SCH (09:53)
[2018-06-19] MEDS: NAPROXEN 500 MG TABLET (FP) PO SCH ×2 (09:53→21:43)
[2018-06-19] MEDS: DIVALPROEX SODIUM 500 MG TABLET E.C. PO SCH ×2 (09:53→21:43)
[2018-06-19] MEDS: PRENATAL VITAMINS W/ FOLIC ACID TABLET (FP) PO SCH (09:54)
[2018-06-19] MEDS: NICOTINE 14 MG/24 HOURS TOPICAL PATCH TD SCH (09:54)
[2018-06-19] MEDS: CYCLOBENZAPRINE HCL 10 MG TABLET (FP) PO PRN ×3 (09:55→21:43)
[2018-06-19] MEDS: ARIPiprazole 15 MG TABLET PO SCH (21:43)
[2018-06-19] MEDS: THIAMINE HCL 100 MG TABLET (FP) PO SCH (21:43)
[2018-06-20] MEDS: FLUoxetine HCL 20 MG CAPSULE (FP) PO SCH (09:47)
[2018-06-20] MEDS: PRENATAL VITAMINS W/ FOLIC ACID TABLET (FP) PO SCH (09:47)
[2018-06-20] MEDS: NICOTINE 14 MG/24 HOURS TOPICAL PATCH TD SCH (09:48)
[2018-06-20] MEDS: DIVALPROEX SODIUM 500 MG TABLET E.C. PO SCH ×2 (09:48→21:37)
[2018-06-20] MEDS: CYCLOBENZAPRINE HCL 10 MG TABLET (FP) PO PRN ×2 (09:48→21:37)
[2018-06-20] MEDS: NAPROXEN 500 MG TABLET (FP) PO SCH ×2 (09:48→21:37)
[2018-06-20] MEDS: THIAMINE HCL 100 MG TABLET (FP) PO SCH (21:37)
[2018-06-20] MEDS: ARIPiprazole 15 MG TABLET PO SCH (21:37)
[2018-06-21] MEDS: DIVALPROEX SODIUM 500 MG TABLET E.C. PO SCH ×2 (10:16→21:10)
[2018-06-21] MEDS: FLUoxetine HCL 20 MG CAPSULE (FP) PO SCH (10:16)
[2018-06-21] MEDS: PRENATAL VITAMINS W/ FOLIC ACID TABLET (FP) PO SCH (10:16)
[2018-06-21] MEDS: NAPROXEN 500 MG TABLET (FP) PO SCH ×2 (10:16→21:10)
[2018-06-21] MEDS: CYCLOBENZAPRINE HCL 10 MG TABLET (FP) PO PRN ×2 (10:18→15:57)
[2018-06-21] MEDS: NICOTINE 14 MG/24 HOURS TOPICAL PATCH TD SCH (10:22)
--- NOTE | 2018-06-21 13:11 | PN ---
Psychiatric Progress Note Vital Signs: Vital Signs Period Temp Pulse Resp BP Sys/Bishop Pulse Ox Last 24 Hr 97.5 F 87 18-20 149/90 Date of Session: 06/21/18 Chief Complaint:: Discharge Note HPI: Patient addressing Alcohol and Cocaine Dependence comorbid with Nicotine Dependence, Bipolar Disorder, Substance-Induced Mood Disorder and Substance- Induced Sleep Disorder ROS: Asthma, HLD,Seizure Disorder, H/O Traumatic brain injury Current Medications: Active Medications Generic Name Dose Route Start Last Admin Trade Name Freq PRN Reason Stop Dose Admin Acetaminophen 650 mg 05/26/18 20:19 06/07/18 21:39 Tylenol - PO 650 mg Q4H PRN Administration FEVER Al Hydroxide/Mg Hydroxide 30 ml 05/26/18 20:19 06/13/18 11:02 Mylanta Oral Suspension - PO 30 ml Q6H PRN Administration DYSPEPSIA Aripiprazole 15 mg 06/03/18 22:00 06/20/18 21:37 Abilify PO 15 mg HS ALEJANDRO Administration Buspirone HCl 15 mg 05/27/18 22:00 06/20/18 21:50 Buspar - PO 15 mg HS ALEJANDRO Administration Cyclobenzaprine HCl 10 mg 06/12/18 10:42 06/21/18 10:18 Flexeril - PO 10 mg TID PRN Administration MUSCLE SPASMS Divalproex Sodium 500 mg 05/27/18 10:00 06/21/18 10:16 Depakote - PO 500 mg BID ALEJANDRO Administration Eucalyptus/Menthol/Phenol/Sorbitol 1 each 05/26/18 20:19 Cepastat Lozenge - MM Q4H PRN SORE THROAT Fluoxetine HCl 60 mg 05/30/18 10:00 06/21/18 10:16 Prozac - PO 60 mg DAILY ALEJANDRO Administration Guaifenesin 10 ml 05/26/18 20:19 Robitussin Dm - PO Q6H PRN COUGH Hydroxyzine Pamoate 50 mg 05/26/18 20:19 05/26/18 21:56 Vistaril - PO 50 mg Q4H PRN Administration AGITATION Loperamide HCl 4 mg 05/26/18 20:19 Imodium - PO Q6H PRN DIARRHEA Magnesium Citrate 300 ml 05/26/18 20:19 Citroma - PO Q48H PRN CONSTIPATION Magnesium Hydroxide 30 ml 05/26/18 20:19 Milk Of Magnesia - PO DAILY PRN CONSTIPATION Melatonin 5 mg 05/26/18 22:00 06/18/18 21:41 Melatonin PO 5 mg HS PRN Administration INSOMNIA Naproxen 500 mg 06/01/18 22:00 06/21/18 10:16 Naprosyn - PO 500 mg BID ALEJANDRO Administration Nicotine 14 mg 05/27/18 10:00 06/21/18 10:22 Nicoderm Patch - TD Not Given DAILY ALEJANDRO Nicotine Polacrilex 2 mg 05/26/18 20:19 06/17/18 09:48 Nicorette Gum - BUC 2 mg Q2H PRN Administration NICOTINE REPLACEMENT RX Multivit/Folic Acid/Iron 1 tab 05/27/18 10:00 06/21/18 10:16 Vitamins (Sjr) - PO 1 tab DAILY ALEJANDRO Administration Pseudoephedrine/Triprolidine 1 combo 05/26/18 20:19 Actifed - PO TID PRN NASAL CONGESTION Thiamine HCl 100 mg 05/26/18 22:00 06/20/18 21:37 Vitamin B1 - PO 100 mg HS ALEJANDRO Administration Current Side Effect: No Lab tests ordered: Yes Lab tests reviewed: Yes Provider note:: Patient will complete this program on 06/22/18. He has met his treatment goals and will continue to address his issues in outpatient treatment at [facility]. Told pattern chart writer that from his participation in this program , he has learned that identify his triggers and beter ways to avoid them. He responded well to Prozac 60 mg po daily, Abilify 15 mg po HS, Buspar 15 mg po HS and Depakote 500 mg po BID. Scripts for 30 days supply of these medications will be electronically transferred to [facility] at [address] [place] [address]. He is stable for discharge on 06/22/18 Total face to face time:: 35 Mental Status Exam - Mental Status Exam Alert and Oriented to: Time, Place, Person Cognitive Function: Fair Patient Appearance: Well Groomed Mood: Hopeful, Euthymic Affect: Appropriate Patient Behavior: Cooperative Speech Pattern: Clear Voice Loudness: Normal Thought Process: Intact, Goal Oriented Thought Disorder: Not Present Hallucinations: Denies Suicidal Ideation: Denies Homicidal Ideation: Denies Insight/Judgement: Fair Sleep: Fair Appetite: Good Muscle strength/Tone: Normal Gait/Station: Normal Psychiatric Treatment Plan - Problem List (1) Alcohol dependence Current Visit: No (2) Cocaine dependence Current Visit: No Qualifiers: Substance use status: in remission Qualified Code(s): F14.21 - Cocaine dependence, in remission (3) Nicotine dependence Current Visit: Yes (4) Bipolar disorder Current Visit: No Qualifiers: Most recent bipolar episode type: most recent episode unspecified type (5) Substance induced mood disorder Current Visit: Yes (6) Substance-induced sleep disorder Current Visit: Yes (7) Asthma Current Visit: No Qualifiers: Asthma severity: mild Asthma persistence: unspecified Asthma complication type: unspecified Qualified Code(s): J45.998 - Other asthma (8) History of traumatic brain injury Current Visit: No (9) Seizure disorder Current Visit: No Comment: on Depakote (10) HLD (hyperlipidemia) Current Visit: Yes Initial treatment plan: Patient will be discharged tomorrow and referred to [facility] for outpatient treatment
[2018-06-21] MEDS: ARIPiprazole 15 MG TABLET PO SCH (21:10)
[2018-06-21] MEDS: THIAMINE HCL 100 MG TABLET (FP) PO SCH (21:10)
[2018-06-22 06:46] VITALS: BP 140/90; PULSE 78; TEMP 97.6
[2018-06-22] MEDS: NAPROXEN 500 MG TABLET (FP) PO SCH (09:48)
[2018-06-22] MEDS: NICOTINE 14 MG/24 HOURS TOPICAL PATCH TD SCH (09:48)
[2018-06-22] MEDS: PRENATAL VITAMINS W/ FOLIC ACID TABLET (FP) PO SCH (09:48)
[2018-06-22] MEDS: FLUoxetine HCL 20 MG CAPSULE (FP) PO SCH (09:48)
[2018-06-22] MEDS: CYCLOBENZAPRINE HCL 10 MG TABLET (FP) PO PRN (09:48)
[2018-06-22] MEDS: DIVALPROEX SODIUM 500 MG TABLET E.C. PO SCH (09:48)
== END 2018-06-22 09:55 | disposition home or self-care (01) | DRG 772 ==
LOC: YASAS 18:16 → Y3W 18:18
PROVIDERS: ADMIT Psychiatry & Neurology Psychiatry; ATTEND Psychiatry & Neurology Psychiatry
PROC: HZ42ZZZ Group Counseling for Substance Abuse Treatment, Cognitive-Behavioral (ICD-10-PCS; principal; 2018-05-26)
DX: F10.20 Alcohol dependence, uncomplicated (principal); F14.20 Cocaine dependence, uncomplicated; F17.210 Nicotine dependence, cigarettes, uncomplicated; F31.9 Bipolar disorder, unspecified; F19.20 Other psychoactive substance dependence, uncomplicated; F19.282 Other psychoactive substance dependence with psychoactive substance-induced sleep disorder; G40.509 Epileptic seizures related to external causes, not intractable, without status epilepticus; J45.909 Unspecified asthma, uncomplicated; E78.5 Hyperlipidemia, unspecified; Z87.820 Personal history of traumatic brain injury
CPT/HCPCS: 90688; G0008